=== PATIENT | male | born 1940 | race Caucasian/White ===

== ENCOUNTER 2017-11-14 10:41 | Day surgery (SDC) | payer OTHER, BC ==
[~2017-11-14] VITALS: Ht 177.8 cm; Wt 95.0 kg
[2017-11-14] MEDS ORDERED: TOPROL XL25 MG PO (10:55)
[2017-11-14] MEDS ORDERED: FLOMAX0.4 MG PO (10:56)
[2017-11-14] MEDS ORDERED: OMEPRAZOLE40 M1 PO (10:56)
[2017-11-14] MEDS ORDERED: LIPITOR40 MG PO (10:56)
[2017-11-14] MEDS ORDERED: RESTASIS MULTI5.5 ML BOTH EYES (10:57)
[2017-11-14] MEDS ORDERED: LO-DOSE ASPIRIN81 M2 PO (10:58)
[2017-11-14] MEDS ORDERED: POLYTRIM EYE DR10 ML LEFT EYE (10:58)
== END 2017-11-14 11:45 | disposition home or self-care (01) ==
LOC: PAIN 10:41 → SDC 11:15 → PAIN 11:45
DX: M53.3 Sacrococcygeal disorders, not elsewhere classified (principal); M46.1 Sacroiliitis, not elsewhere classified; M48.061 Spinal stenosis, lumbar region without neurogenic claudication; M51.26 Other intervertebral disc displacement, lumbar region; M47.816 Spondylosis without myelopathy or radiculopathy, lumbar region; M79.1 Myalgia; E78.5 Hyperlipidemia, unspecified; M17.10 Unilateral primary osteoarthritis, unspecified knee
CPT/HCPCS: J1030; S0020